=== PATIENT | male | born 1970 | race Two or more races ===

== ENCOUNTER 2023-10-27 13:17 | Outpatient (REF) | payer MEDICAID, SELFPAY | END 2023-10-27 13:18 | disposition home or self-care (01) | LOC: HO.BBR 13:17 | PROVIDERS: PCP Nurse Practitioner; Visit Provider Internal Medicine | DX: D75.1 Secondary polycythemia (principal) | CPT/HCPCS: 85018; 99195 ==

== ENCOUNTER 2023-11-03 15:06 | Outpatient (REF) | payer MEDICAID, SELFPAY | END 2023-11-03 15:07 | disposition home or self-care (01) | LOC: HO.BBR 15:06 | PROVIDERS: Visit Provider Internal Medicine | DX: D75.1 Secondary polycythemia (principal) | CPT/HCPCS: 85018; 99195 ==

== ENCOUNTER 2023-11-17 15:13 | Outpatient (REF) | payer MEDICAID, SELFPAY | END 2023-11-17 15:14 | disposition home or self-care (01) | LOC: HO.BBR 15:13 | PROVIDERS: PCP Nurse Practitioner; Visit Provider Internal Medicine | DX: D75.1 Secondary polycythemia (principal) | CPT/HCPCS: 85018; 99195 ==

== ENCOUNTER 2023-12-01 15:17 | Outpatient (REF) | payer MEDICAID, SELFPAY | END 2023-12-01 15:18 | disposition home or self-care (01) | LOC: HO.BBR 15:17 | PROVIDERS: PCP Nurse Practitioner; Visit Provider Internal Medicine | DX: D75.1 Secondary polycythemia (principal) | CPT/HCPCS: 85018; 99195 ==

== ENCOUNTER 2023-12-08 15:17 | Outpatient (REF) | payer MEDICAID, SELFPAY | END 2023-12-08 15:18 | disposition home or self-care (01) | LOC: HO.BBR 15:17 | PROVIDERS: PCP Nurse Practitioner; Visit Provider Internal Medicine | DX: D75.1 Secondary polycythemia (principal) | CPT/HCPCS: 85014; 85018; 99195 ==

== ENCOUNTER 2023-12-22 15:12 | Outpatient (REF) | payer MEDICAID, SELFPAY | END 2023-12-22 15:13 | disposition home or self-care (01) | LOC: HO.BBR 15:12 | PROVIDERS: PCP Nurse Practitioner; Visit Provider Internal Medicine | DX: D75.1 Secondary polycythemia (principal) | CPT/HCPCS: 85018; 99195 ==

== ENCOUNTER 2023-12-29 13:59 | Outpatient (REF) | payer MEDICAID, SELFPAY | END 2023-12-29 14:00 | disposition home or self-care (01) | LOC: HO.BBR 13:59 | PROVIDERS: PCP Nurse Practitioner; Visit Provider Internal Medicine | DX: D75.1 Secondary polycythemia (principal) | CPT/HCPCS: 85018; 99195 ==

== ENCOUNTER 2024-01-05 15:32 | Outpatient (REF) | payer MEDICAID, SELFPAY | END 2024-01-05 15:33 | disposition home or self-care (01) | LOC: HO.BBR 15:32 | PROVIDERS: PCP Nurse Practitioner; Visit Provider Internal Medicine | DX: D75.1 Secondary polycythemia (principal) | CPT/HCPCS: 85018; 99195 ==

== ENCOUNTER 2024-01-12 15:21 | Outpatient (REF) | payer MEDICAID, SELFPAY | END 2024-01-12 15:22 | disposition home or self-care (01) | LOC: HO.BBR 15:21 | PROVIDERS: PCP Nurse Practitioner; Visit Provider Internal Medicine | DX: D75.1 Secondary polycythemia (principal) | CPT/HCPCS: 85018; 99195 ==

== ENCOUNTER 2024-01-19 15:11 | Outpatient (REF) | payer MEDICAID, SELFPAY | END 2024-01-19 15:12 | disposition home or self-care (01) | LOC: HO.BBR 15:11 | PROVIDERS: PCP Nurse Practitioner; Visit Provider Internal Medicine | DX: D75.1 Secondary polycythemia (principal) | CPT/HCPCS: 85018; 99195 ==

== ENCOUNTER 2024-02-02 15:29 | Outpatient (REF) | payer MEDICAID, SELFPAY | END 2024-02-02 15:30 | disposition home or self-care (01) | LOC: HO.BBR 15:29 | PROVIDERS: PCP Nurse Practitioner; Visit Provider Internal Medicine | DX: D75.1 Secondary polycythemia (principal) | CPT/HCPCS: 85018; 99195 ==

== ENCOUNTER 2024-02-09 15:09 | Outpatient (REF) | payer MEDICAID, SELFPAY | END 2024-02-09 15:10 | disposition home or self-care (01) | LOC: HO.BBR 15:09 | PROVIDERS: PCP Nurse Practitioner; Visit Provider Internal Medicine | DX: D75.1 Secondary polycythemia (principal) | CPT/HCPCS: 85014; 85018; 99195 ==

== ENCOUNTER 2024-02-16 15:27 | Outpatient (REF) | payer MEDICAID, SELFPAY | END 2024-02-16 15:28 | disposition home or self-care (01) | LOC: HO.BBR 15:27 | PROVIDERS: PCP Nurse Practitioner; Visit Provider Internal Medicine | DX: D75.1 Secondary polycythemia (principal) | CPT/HCPCS: 85014; 85018; 99195 ==

== ENCOUNTER 2024-02-23 15:29 | Outpatient (REF) | payer MEDICAID, SELFPAY | END 2024-02-23 15:30 | disposition home or self-care (01) | LOC: HO.BBR 15:29 | PROVIDERS: PCP Nurse Practitioner; Visit Provider Internal Medicine | DX: D75.1 Secondary polycythemia (principal) | CPT/HCPCS: 85018; 99195 ==

== ENCOUNTER 2024-03-01 15:27 | Outpatient (REF) | payer MEDICAID, SELFPAY | END 2024-03-01 15:28 | disposition home or self-care (01) | LOC: HO.BBR 15:27 | PROVIDERS: PCP Nurse Practitioner; Visit Provider Internal Medicine | DX: D75.1 Secondary polycythemia (principal) | CPT/HCPCS: 85018; 99195 ==

== ENCOUNTER 2024-03-08 15:22 | Outpatient (REF) | payer MEDICAID, SELFPAY | END 2024-03-08 15:23 | disposition home or self-care (01) | LOC: HO.BBR 15:22 | PROVIDERS: PCP Nurse Practitioner; Visit Provider Internal Medicine | DX: D75.1 Secondary polycythemia (principal) | CPT/HCPCS: 85014; 85018; 99195 ==

== ENCOUNTER 2024-03-22 15:28 | Outpatient (REF) | payer MEDICAID, SELFPAY | END 2024-03-22 15:29 | disposition home or self-care (01) | LOC: HO.BBR 15:28 | PROVIDERS: PCP Nurse Practitioner; Visit Provider Internal Medicine | DX: D75.1 Secondary polycythemia (principal) | CPT/HCPCS: 85018; 99195 ==

== ENCOUNTER 2024-03-29 15:27 | Outpatient (REF) | payer MEDICAID, SELFPAY | END 2024-03-29 15:28 | disposition home or self-care (01) | LOC: HO.BBR 15:27 | PROVIDERS: PCP Nurse Practitioner; Visit Provider Internal Medicine | DX: D75.1 Secondary polycythemia (principal) | CPT/HCPCS: 85014; 85018; 99195 ==

== ENCOUNTER 2024-04-05 15:32 | Outpatient (REF) | payer MEDICAID, SELFPAY | END 2024-04-05 15:33 | disposition home or self-care (01) | LOC: HO.BBR 15:32 | PROVIDERS: PCP Nurse Practitioner; Visit Provider Internal Medicine | DX: D75.1 Secondary polycythemia (principal) | CPT/HCPCS: 85018; 99195 ==

== ENCOUNTER 2024-04-19 15:28 | Outpatient (REF) | payer MEDICAID, SELFPAY | END 2024-04-19 15:29 | disposition home or self-care (01) | LOC: HO.BBR 15:28 | PROVIDERS: PCP Nurse Practitioner; Visit Provider Internal Medicine | DX: D75.1 Secondary polycythemia (principal) | CPT/HCPCS: 85018; 99195 ==